=== PATIENT | female | born 1975 | race Two or more races ===

== ENCOUNTER 2022-08-16 21:12 | Emergency (ER) | payer MEDICAID ==
[~2022-08-16] VITALS: Ht 157.5 cm; Wt 72.1 kg
[~2022-08-16 21:12] MED LIST: INSUPOW
[2022-08-16 21:37] VITALS: BP 144/94
[2022-08-17] MEDS ORDERED: KETOROLAC TROMETH 60MG/2ML VIAL IM ONE (02:00)
[2022-08-17] MEDS ORDERED: NAP500T PO (02:01)
== END 2022-08-17 02:19 | disposition home or self-care (01) ==
LOC: ER 21:12
DX: S09.8XXA Other specified injuries of head, initial encounter (principal); R41.82 Altered mental status, unspecified; E11.9 Type 2 diabetes mellitus without complications; Z98.51 Tubal ligation status; W18.09XA Striking against other object with subsequent fall, initial encounter; Y93.89 Activity, other specified; Y92.89 Other specified places as the place of occurrence of the external cause; Y99.8 Other external cause status
CPT/HCPCS: 96372; 99283; J1885